=== PATIENT | male | born 1990 | race Caucasian/White ===

== ENCOUNTER 2019-12-17 03:07 | Emergency (ER) | payer OTHER ==
[~2019-12-17] VITALS: Ht 177.8 cm; Wt 78.0 kg
[2019-12-17 03:59] LABS: ABSOLUTE EOSINOPHILS 0.2 thou/uL (0.0-0.7); ABSOLUTE LYMPHOCYTES 2.9 thou/uL (0.8-5.3); ABSOLUTE MONOCYTES 0.7 thou/uL (0.0-1.2); ABSOLUTE NEUTROPHILS 5.3 thou/uL (1.6-8.1); BASOPHILS 0.3 %; EOSINOPHILS 1.8 %; HEMATOCRIT 46.3 % (42.0-52.0); HEMOGLOBIN 16.3 gm/dL (14.0-18.0); LYMPHOCYTES 32.1 %; MCH 30.1 pg (26.0-34.0); MCHC 35.2 g/dL (28.0-37.0); MCV 85.5 fL (80.0-100.0); MONOCYTES 7.6 %; MPV 7.1 fl. (7.2-11.1); NUCLEATED RBCS 0 /100WBC; PLATELET COUNT* 337 thou/uL (150-400); POLYS 58.2 %; RBC 5.41 mil/uL (4.50-6.00); RDW-CV 12.9 % (10.5-14.5); WBC 9.1 thou/uL (4.0-11.0)
[2019-12-17 04:02] LABS: CREATININE 0.9 mg/dL (0.6-1.3); POTASSIUM 3.8 mmol/L (3.5-5.1)
[2019-12-17] MEDS ORDERED: EPIPEN 2-P0.3 MG/0.3 IM (04:22)
[2019-12-17] MEDS ORDERED: PREDNISONE50 MG PO (04:23)
[2019-12-17 04:50] VITALS: BP 131/75
== END 2019-12-17 04:51 | disposition home or self-care (01) ==
LOC: M.ERS 03:07
PROVIDERS: Emergency Medicine
DX: T78.40XA Allergy, unspecified, initial encounter (principal); R06.02 Shortness of breath; R11.0 Nausea; X58.XXXA Exposure to other specified factors, initial encounter